=== PATIENT | male | born 1980 | race Caucasian/White ===

== ENCOUNTER 2022-02-14 08:15 | Outpatient (CLI) | payer OTHER, SELFPAY ==
--- NOTE | 2022-02-14 08:15 | CRLHL7_ITS ---
For Patients: As a result of the Century Cures Act, medical imaging exams and procedure reports are released immediately into your electronic medical record. You may view this report before your referring provider. If you have questions, please contact your health care provider. Indication: Dysphagia Technique: Esophagram Comparison: No comparison Findings: Patient was given thin and thick barium and upper of which were followed fluoroscopically. Hypopharynx appears clear small hiatal hernia. No mass lesion filling defects ulceration. Impression: Small hiatal hernia. Study 0.48 minutes fluoro time. Dictated by Earline Awan MD @ 02/14/2022 9:42:02 AM (Electronically Signed)
== END 2022-02-14 08:16 | disposition home or self-care (01) ==
LOC: RAD 08:23
PROVIDERS: PCP Family Medicine; Visit Provider Otolaryngology
DX: R13.10 Dysphagia, unspecified (principal); K44.9 Diaphragmatic hernia without obstruction or gangrene
CPT/HCPCS: 74221